=== PATIENT | male | born 1940 | race Caucasian/White ===

== ENCOUNTER 2024-07-23 07:33 | Day surgery (SDC) | payer MEDICARE, OTHER ==
[2024-07-22 14:57] LABS: BASOPHILS # (AUTO) 0.1 X10'3 (0-0.2); BASOPHILS % (AUTO) 0.8 % (0-1); EOSINOPHILS # (AUTO) 0.1 X10'3 (0-0.9); HEMATOCRIT 39.3 % (42.0-52.0); HEMOGLOBIN 13.5 g/dl (14.0-17.9); LYMPHOCYTES # (AUTO) 1.3 X10'3 (1.1-4.8); MEAN CORPUSCULAR HEMOGLOBIN 30.4 PG (27.0-31.0); MEAN CORPUSCULAR HGB CONC 34.3 g/dL (33.0-36.5); MEAN CORPUSCULAR VOLUME 88.5 FL (78-98); MEAN PLATELET VOLUME 6.6 FL (7.4-10.4); MONOCYTES # (AUTO) 0.9 X10'3 (0-0.9); MONOCYTES % (AUTO) 11.5 % (2-12); NEUTROPHILS # (AUTO) 5.7 X10'3 (1.8-7.7); NEUTROPHILS % (AUTO) 70.7 % (42-75); PLATELET COUNT 283 X10'3 (140-440); RED BLOOD COUNT 4.44 X10'6 (4.70-6.10); RED CELL DISTRIBUTION WIDTH 14.1 % (11.5-14.5); WHITE BLOOD COUNT 8.1 X10'3 (4.5-11.0)
[2024-07-22 15:06] LABS: APTT 30 SECONDS (22-32); INR 1.1 INR; PROTHROMBIN TIME 10.9 SECONDS (9.0-12.0)
[2024-07-22 15:14] LABS: ALBUMIN 3.8 G/DL (3.4-5.0); ANION GAP 7 (8-16); BLOOD UREA NITROGEN 14 MG/DL (7-18); BUN/CREATININE RATIO 15.6 (10.0-20.0); CALCIUM 8.7 MG/DL (8.5-10.1); CHLORIDE 92 MMOL/L (99-107); GLUCOSE 105 MG/DL (70-104); POTASSIUM 4.4 MMOL/L (3.5-5.1); SODIUM 127 MMOL/L (135-145); TOTAL CARBON DIOXIDE 27.7 MMOL/L (24-32); eGFR 81 ML/MIN
[2024-07-23] VITALS (10 sets, daily range): BP systolic 145–205; BP diastolic 60–74; PULSE 56–66; RESP 10–16; TEMP 98; O2SAT 96–98
[~2024-07-23] VITALS: Ht 172.7 cm; Wt 75.0 kg
[2024-07-23] MEDS ORDERED: LORazepam 0.5 MG tablet PO PRN (07:45)
[2024-07-23] MEDS ORDERED: LIDOcaine 1% (10mg/ml) 2ml vial ONE (07:45)
[2024-07-23] MEDS ORDERED: heparin 1,000unit/ml 10ml vial 10 ML ONE (07:46)
[2024-07-23] MEDS ORDERED: nitroGLYCERIN 500mcg/5mL D5W 5 ML IV ONE (07:46)
[2024-07-23] MEDS ORDERED: iohexol 350MG/ML 100ml bottle IV ONE (07:46)
[2024-07-23] MEDS ORDERED: iohexol 350 MG/ML 50ML vial IV ONE ×2 (07:46→11:53)
[2024-07-23] MEDS ORDERED: verapamil 2.5 mg/ml inj IV ONE (07:46)
[2024-07-23] MEDS ORDERED: DILT-96 PO (07:56)
[2024-07-23] MEDS ORDERED: CHLO25TA10 PO (07:56)
[2024-07-23] MEDS ORDERED: IRBE150T34 PO (07:56)
[2024-07-23] MEDS ORDERED: CARV25TA2 PO (07:56)
[2024-07-23] MEDS: normal saline 1,000 ML IV SCH (08:29)
[2024-07-23] MEDS: diphenhydrAMINE 25mg capsule PO PRN (08:29)
[2024-07-23] MEDS ORDERED: fentaNYL/PF 50MCG/1 ML 2ML syringe ONE (11:01)
[2024-07-23] MEDS ORDERED: midazolam 1 mg/ML 2ml injection ONE (11:01)
[2024-07-23] MEDS ORDERED: normal saline 1000ml 1,000 ML IV SCH (12:40)
== END 2024-07-23 18:00 | disposition home or self-care (01) ==
LOC: SSTAY O 07:33
PROVIDERS: ATTEND Internal Medicine Cardiovascular Disease
DX: I25.10 Atherosclerotic heart disease of native coronary artery without angina pectoris (principal); E78.5 Hyperlipidemia, unspecified; I10 Essential (primary) hypertension; Z79.01 Long term (current) use of anticoagulants; Z79.899 Other long term (current) drug therapy; Z98.890 Other specified postprocedural states
CPT/HCPCS: 36415; 80048; 85025; 85610; 85730; 93005; 93459; 99152; 99153; A6258; A6402; C1725; C1751; C1894; J1644; J2003; J2250; J3010; J3490; J7030; Q0163; Q9967; Z7610; 76937; A6449

== ENCOUNTER 2024-12-29 09:16 | Day surgery (SDC) | payer MEDICARE, OTHER ==
[2024-12-29] VITALS (9 sets, daily range): BP systolic 119–214; BP diastolic 41–101; PULSE 49–69; RESP 12–22; TEMP 98.4; O2SAT 97–100
[~2024-12-29] VITALS: Ht 172.7 cm; Wt 73.8 kg
[2024-12-29] MEDS: DOCUMENT DATE & TIME OF BETA-BLOCKER PO ONE (07:30)
[~2024-12-29 09:16] MED LIST: CARV25TA2 PO; DILT-96 PO; IRBE150T34 PO; LIDOcaine 2% Viscous 15ml cup MM ONE; ringers solution, lacted 1,000 ML IV SCH; simethicone 40mg/0.6ml oral drops 15ml PO ONE
[2024-12-29] MEDS ORDERED: hydrALAZINE 20mg/ml inj. IV ONE (11:35)
[2024-12-29] MEDS ORDERED: fentaNYL/PF 50MCG/1 ML 2ML syringe ONE (14:15)
[2024-12-29] MEDS ORDERED: MIDAZolam 1 MG/ML 5ML VIAL ONE (14:15)
[2024-12-29] MEDS: fentaNYL/PF 50MCG/1 ML 2ML syringe IV ONE (14:35)
[2024-12-29] MEDS: MIDAZolam 1 MG/ML 5ML VIAL IV ONE (14:35)
== END 2024-12-29 15:40 | disposition home or self-care (01) ==
LOC: GI LAB 09:16
PROVIDERS: ATTEND Internal Medicine Gastroenterology
DX: D50.9 Iron deficiency anemia, unspecified (principal); K63.5 Polyp of colon; K57.30 Diverticulosis of large intestine without perforation or abscess without bleeding; K64.8 Other hemorrhoids; K31.89 Other diseases of stomach and duodenum; I12.9 Hypertensive chronic kidney disease with stage 1 through stage 4 chronic kidney disease, or unspecified chronic kidney disease; N18.9 Chronic kidney disease, unspecified; I25.10 Atherosclerotic heart disease of native coronary artery without angina pectoris; E78.5 Hyperlipidemia, unspecified; M19.90 Unspecified osteoarthritis, unspecified site; Z79.899 Other long term (current) drug therapy; Z95.1 Presence of aortocoronary bypass graft
CPT/HCPCS: 43239; 45385; 82948; 88305; 88342; 99153; A4620; C1889; G0500; J0360; J2250; J3010; J7120; Z7512; Z7610; 99152